=== PATIENT | male | born 1980 | race Caucasian/White ===

== ENCOUNTER 2016-08-01 14:23 | Inpatient (IN) | payer OTHER ==
[~2016-08-01] VITALS: Ht 182.9 cm; Wt 68.5 kg
[2016-08-02] MEDS ORDERED: CLONIDINE HCL 0.1 MG TABLET PO PRN (03:00)
[2016-08-02] MEDS ORDERED: diphenhydrAMINE 50 MG CAPSULE PO PRN (03:00)
[2016-08-02] MEDS ORDERED: LORAZEPAM 1 MG TABLET PO PRN ×5 (03:00→09:15)
[2016-08-02] MEDS ORDERED: MAG HYDROX/AL HYDROX/SIMETH 30 ML LIQUID UDC PO PRN (03:00)
[2016-08-02] MEDS ORDERED: MAGNESIUM HYDROXIDE 30 ML LIQUID UDC PO PRN (03:00)
[2016-08-02] MEDS ORDERED: ONDANSETRON ODT 4 MG TAB.RAPDIS SL PRN (03:00)
[2016-08-02] MEDS ORDERED: HYDROXYZINE PAMOATE 25 MG CAPSULE PO PRN ×2 (03:00→09:15)
[2016-08-02] MEDS ORDERED: ACETAMINOPHEN 325 MG TABLET PO PRN (03:00)
[2016-08-02] MEDS ORDERED: DICYCLOMINE HCL 20 MG TABLET PO PRN (03:00)
[2016-08-02] MEDS ORDERED: LORAZEPAM 2 MG/1 ML VIAL IM PRN (03:00)
[2016-08-02] MEDS ORDERED: BUPRENORPHINE HCL 2 MG TAB.SUBL SL PRN ×2 (03:00→09:15)
--- NOTE | 2016-08-02 03:30 | NUR ---
ADMISSION NOTE Pt arrived ambulatory to the [facility] third floor (accompanied by [facility] staff) on 08/02/16 at approximately 0255. Pt is a 36 y/o male being admitted for Benzodiazepine, Opiate, ETOH, Cocaine, and Marijuana dependence and use. Pt is a/o x 4 with no changes in LOC. Pt reported having an allergy to grass. Pt weighs 151 pounds and stands at 6 feet. Pt reported a PMH of major depression, anxiety, and right knee injury r/t sports. Pt reported having a family hx of diabetes(Dad). Pt reported having a family physician but stated " I rather not give you his name." Pt denied having a psych doctor. Pt reported he's been using Heroin for 15 years, and uses about 1 gram every other day. Last dose of Heroin was on Sunday ( 07/28/16) and pt reported using " 2 bags". Pt has been using [place] for 6 years and uses 4-6 pills every other day. Last dose of [place] was on Sunday (07/29/16) and pt had 2-3 pills. Pt has been using Ativan for the past 9 years. Pt stated " I get it prescribed to me through my family doctor. I usually only take 6 mg a day, but depending on how I feel that day I sometimes take more. I took some on the plane before I came here (08/02/16). I had between 5-10 2 mg pills." Pt reported using Cocaine and Marijuana since high school. Pt uses about half a gram of each substance sporadically. Last dose of Cocaine was on Sunday (07/29/16) and last dose of Marijuana was on Sunday, but pt cannot recall how much he used. Pt reported " I've been drinking for a number of years. I drink vodka. It depends on how I'm feeling. Some days I can drink a fifth of vodka or more. Other days I just have a couple of drinks." Pt reported having his last drink on Sunday (07/29/16) but cannot recall how much he had to drink on that day. Pt arrived with an empty bottle of [place] 10/325 mg for chronic right knee pain, and a half empty bottle of Ativan 2 mg for anxiety. All medications reconciled. Pt reported this is his first time in treatment and he's never been completely sober. Pt smokes about 3/4 pack of cigarettes a day. Upon assessment pt is mildly intoxicated, but coherent and partially cooperative. Pt was notably agitated and as the interview went on pt's affect began to flatten and he became more uncooperative. Pt's breathing is even and unlabored. No SOB noted or reported. Pt's skin is dry and intact. Vital signs upon preadmission: BP: 126/86 HR:73 T:98.0 R: 20 Oxygen Saturation: 100% Pain: 0/10 COW: 13 and CIWA: 10. Pt encouraged to notify staff of any changes in condition or of any concerns. Pt verbalized an understanding. Will continue to monitor.
--- NOTE | 2016-08-02 03:56 | NUR ---
PRN Vistaril Pt c/o anxiety and requested for PRN Vistaril. Medication given and tolerated well. Will reassess within 1 HR. Will continue to monitor.
[2016-08-02] MEDS ORDERED: HYDROXYZINE PAMOATE 25 MG CAPSULE ONE (03:57)
[2016-08-02 04:00] VITALS: BP 126/56
[2016-08-02 04:03] LABS: BASOPHILS # (AUTO) 0.1 K/uL (0.0-8.0); BASOPHILS % (AUTO) 0.8 % (0.0-2.0); EOSINOPHILS # (AUTO) 0.3 K/uL (0.0-0.7); EOSINOPHILS % (AUTO) 4.7 % (0.0-7.0); ETHANOL < 3 MG/DL (0-0); HEMATOCRIT 45.7 % (36.7-47.1); HEMOGLOBIN 15.8 g/dL (12.5-16.3); LYMPHOCYTES % (AUTO) 42.6 % (20.5-51.5); MEAN CORPUSCULAR HEMOGLOBIN 30.8 uug (23.8-33.4); MEAN CORPUSCULAR HGB CONC 35 g/dL (32.5-36.3); MEAN CORPUSCULAR VOLUME 89.1 fL (73.0-96.2); MONOCYTES # (AUTO) 0.5 K/uL (2.0-10.0); MONOCYTES % (AUTO) 6.7 % (0.0-11.0); NEUTROPHILS % (AUTO) 45.2 % (38.5-71.5); PLATELET COUNT (AUTO) 264 K/uL (152-348); RED BLOOD CELL COUNT(AUTO) 5.12 MIL/uL (4.06-5.63); RED CELL DISTRIBUTION WIDTH 12.5 % (12.1-16.2); WHITE BLOOD COUNT (AUTO) 6.9 K/uL (3.6-10.2)
[2016-08-02 04:04] LABS: ALANINE AMINOTRANSFERASE 384 U/L (16-63); ALBUMIN 4.1 g/dL (3.4-5.0); ALKALINE PHOSPHATASE 56 U/L (50-136); AMYLASE 33 U/L (25-115); ASPARTATE AMINOTRANSFERASE 187 U/L (15-37); BILIRUBIN,TOTAL 0.5 mg/dL (0.2-1.0); CALCIUM 8.8 mg/dL (8.5-10.1); CARBON DIOXIDE 32 mmol/L (21-32); CHLORIDE 102 mmol/L (98-107); CREATININE 1.1 mg/dL (0.6-1.3); GFR 77 mL/min (>60); GLUCOSE 93 mg/dL (74-106); LIPASE 284 U/L (73-393); POTASSIUM 4.1 mmol/L (3.5-5.1); SODIUM SERUM 141 mmol/L (136-145); UREA NITROGEN, BLOOD 11 mg/dL (7-18)
[2016-08-02 04:22] LABS: HIV-1 p24 ANTIGEN NON REACTIVE (NONREACTIVE); HIV-1/2 ANTIBODY NON REACTIVE (NONREACTIVE)
--- NOTE | 2016-08-02 04:56 | NUR ---
VISTARIL PRN REASSESSMENT Pt stated " I'm fine now, I just don't want to be bothered so I can sleep. " PRN effective. All safety measures in place. Will continue to monitor.
--- NOTE | 2016-08-02 07:30 | NUR ---
Start of shift note; Received report from night nurse. Patient is a 36 y/o male admitted on 08/02/16 for Opiate/ETOH/Benzo/cocaine dependence. Patient reported history of depression, anxiety, right knee injury. No seizure history reported.Patient is on a regular diet and on full code status. Patient is on fall and seizure precaution. Will continue to monitor patient.
--- NOTE | 2016-08-02 07:45 | NUR ---
END OF SHIFT NOTE Pt is a 36 y/o male admitted for Heroin, Ativan, ETOH, Cocaine, and Marijuana dependence and use. Pt has an allergy to grass and reported a PMH of depression, anxiety, and right knee injury. Pt is not on taper at this time. Pt received Vistaril 50 mg PO PRN during the shift. Pt slept for a total of 3 hours. Endorsed to the oncoming nurse.
[2016-08-02 08:00] VITALS: BP 112/73
[2016-08-02] MEDS: MULTIVITAMINS,THERAPEUTIC TABLET PO SCH (09:00)
[2016-08-02] MEDS ORDERED: TUBERCULIN,PURIF.PROT.DERIV. 5 TU/0.1 ML TEST ID ONE (09:00)
[2016-08-02] MEDS ORDERED: THIAMINE HCL 200 MG/2 ML VIAL IM ONE (09:15)
--- NOTE | 2016-08-02 09:31 | NUR ---
Medication refusal; Patient is currently refusing to provide UA and refusing scheduled medications at this time. Educated patient regarding the importance of compliance to treatment plan. Will continue to monitor patient.
[2016-08-02 12:00] VITALS: BP 134/83
[2016-08-02 12:59] LABS: *AMPHETAMINE, URINE NEGATIVE (NEGATIVE); *BARBITURATE, URINE NEGATIVE (NEGATIVE); *CANNABINOID, URINE POSITIVE (NEGATIVE); *COCCAINE, URINE POSITIVE (NEGATIVE); *OPIATE, URINE NEGATIVE (NEGATIVE); *PHENCYCLIDINE SCREEN,URINE NEGATIVE (NEGATIVE)
[2016-08-02 16:00] VITALS: BP 128/82
[2016-08-02] MEDS ORDERED: LORA2TAB95 PO (16:14)
[2016-08-02] MEDS: BUPRENORPHINE HCL 2 MG TAB.SUBL SL SCH ×2 (17:05→20:47)
[2016-08-02] MEDS: LORAZEPAM 1 MG TABLET PO SCH ×2 (17:05→20:43)
--- NOTE | 2016-08-02 19:10 | NUR ---
End of shift note; Patient is AOX4. Patient is a 36 y/o male admitted on 08/02/16 for Opiate/ETOH/Benzo/cocaine dependence. Patient reported history of depression, anxiety, right knee injury. No seizure history reported.Patient is on a regular diet and on full code status. Medications were effective in reducing withdrawal symptoms. Patient is on fall and seizure precaution. Met all needs.
[2016-08-02 20:00] VITALS: BP 120/78
--- NOTE | 2016-08-02 20:11 | NUR ---
START OF SHIFT NOTE Pt is a 36 y/o male admitted for Heroin, Ativan, ETOH, Cocaine, and Marijuana dependence and use. Pt has an allergy to grass and reported a PMH of depression, anxiety, and right knee injury. Per day shift nurse pt was started on a 5 day Ativan and 5 day Subutex taper and is tolerating medication well, with no s/e or a/r reported. Pt didn't receive any PRNS during the day shift. Last COW: 12 and CIWA: 10(1600). At this time pt has just returned to his room from being outside with staff and peers. Pt stated " I'm doing very well today. I hope I can get my own room soon. I don't mind having a roommate, but we have to share the t.v and we don't watch the same things." Pt concerns will be endorsed to the appropriate steamship agent. Pt denies any pain/discomfort at this time. Pt is encouraged to notify staff of any changes in condition or of any concerns. Pt verbalized an understanding. All safety measures in place. Will continue to monitor.
[2016-08-02] MEDS: METHOCARBAMOL 750 MG TABLET PO PRN (20:43)
--- NOTE | 2016-08-02 20:43 | NUR ---
ROBAXIN PRN ADMINISTRATION Pt stated " My knee is hurting. I would say it's about 5 out of 10." Robaxin 750 mg PO PRN was given. Pt was encouraged to notify staff of any changes in condition or of any concerns. Pt verbalized an understanding. All safety measures in place. Will monitor for effectiveness.
--- NOTE | 2016-08-02 21:43 | NUR ---
SANDIE PRN REASSESSMENT Pt stated " My leg feels much better." PRN effective. Will continue to monitor.
[2016-08-03] VITALS: BP 127/81
--- NOTE | 2016-08-03 04:00 | NUR ---
COW, CIWA, AND VITALS REFUSED Pt refused to be assessed and have vitals taken at this time. Pt was encouraged x 3 with risks and benefits explained, but the pt still declined. All safety measures in place. Will continue to monitor. Addendum: 08/03/16 at 0539 by ROSA RICHTER LVN Amended: Links added.
[2016-08-03 07:06] LABS: HEPATITIS B CORE AB, IgM Negative (Negative); HEPATITIS B SURFACE AG Negative (Negative)
--- NOTE | 2016-08-03 07:21 | NUR ---
END OF SHIFT NOTE Pt is a 36 y/o male admitted for Heroin, Ativan, ETOH, Cocaine, and Marijuana dependence and use. Pt has an allergy to grass and reported a PMH of depression, anxiety, and right knee injury. Per day shift nurse pt was started on a 5 day Ativan and 5 day Subutex taper and is tolerating medication well, with no s/e or a/r reported. Pt didn't receive any PRNS during the day shift. Last COW: 12 and CIWA: 10(1600). At this time pt has just returned to his room from being outside with staff and peers. Pt stated " I'm doing very well today. I hope I can get my own room soon. I don't mind having a roommate, but we have to share the t.v and we don't watch the same things." Pt concerns will be endorsed to the appropriate steam hand. Pt denies any pain/discomfort at this time. Pt is encouraged to notify staff of any changes in condition or of any concerns. Pt verbalized an understanding. All safety measures in place. Endorsed to the oncoming nurse.
--- NOTE | 2016-08-03 07:22 | NUR ---
END OF SHIFT NOTE Pt is a 36 y/o male admitted for Heroin, Ativan, ETOH, Cocaine, and Marijuana dependence and use. Pt has an allergy to grass and reported a PMH of depression, anxiety, and right knee injury. Pt continues on a 5 day Ativan and 5 day Subutex taper(day 2) and is tolerating medication well, with no s/e or a/r reported. Pt received Robaxin 750 mg PO PRN any PRNS during the shift. Last COW: 0 and CIWA:0(0000). Pt slept for a total of 7 hours. All safety measures in place. Endorsed to the oncoming nurse.
--- NOTE | 2016-08-03 07:23 | NUR ---
Start of Shift Notes: Received patient in his room. Alert and oriented x 4. Able to make his needs known. Respirations even and unlabored. No SOB noted. Skin warm and dry to touch. Abdomen soft and non-distended with (+) BS in all 4 quadrants. No complains of N/V/D or constipation noted. Denies any complains of abdominal discomfort noted. Voids independently. Ambulatory ad valentina with steady gait. patient is a 36 year old male admitted for opiate/ETOH/Ativan/marijuana and cocaine dependence who was placed on a 5-day Ativan and 5-day Subutex taper as ordered. No adverse reactions noted. Has past medical hx of depression, anxiety and right knee injury. Allergic to grass. FULL CODE. Regular diet. On fall and seizure precautions. Educated patient on his current plan of care for the day and his medication regimen. Encouraged oral fluid intake and encouraged group participation to learn new skills to prevent relapse. Will continue to monitor closely.
[2016-08-03 07:47] LABS: BASOPHILS # (AUTO) 0.1 K/uL (0.0-8.0); BASOPHILS % (AUTO) 0.6 % (0.0-2.0); EOSINOPHILS # (AUTO) 0.4 K/uL (0.0-0.7); EOSINOPHILS % (AUTO) 4.7 % (0.0-7.0); HEMATOCRIT 45.2 % (36.7-47.1); HEMOGLOBIN 15.3 g/dL (12.5-16.3); LYMPHOCYTES # (AUTO) 4.1 K/uL (20.0-40.0); LYMPHOCYTES % (AUTO) 48.2 % (20.5-51.5); MEAN CORPUSCULAR HEMOGLOBIN 30.7 uug (23.8-33.4); MEAN CORPUSCULAR HGB CONC 34 g/dL (32.5-36.3); MEAN CORPUSCULAR VOLUME 90.7 fL (73.0-96.2); MONOCYTES # (AUTO) 0.4 K/uL (2.0-10.0); MONOCYTES % (AUTO) 5.3 % (0.0-11.0); NEUTROPHILS # (AUTO) 3.5 K/uL (1.8-8.9); NEUTROPHILS % (AUTO) 41.2 % (38.5-71.5); PLATELET COUNT (AUTO) 236 K/uL (152-348); RED BLOOD CELL COUNT(AUTO) 4.98 MIL/uL (4.06-5.63); RED CELL DISTRIBUTION WIDTH 12.8 % (12.1-16.2); WHITE BLOOD COUNT (AUTO) 8.5 K/uL (3.6-10.2)
[2016-08-03 08:00] VITALS: BP 120/62
[2016-08-03 08:06] LABS: BILIRUBIN,DIRECT 0.1 mg/dL (0.0-0.2); BILIRUBIN,TOTAL 0.3 mg/dL (0.2-1.0); CALCIUM 8.5 mg/dL (8.5-10.1); CREATININE 0.9 mg/dL (0.6-1.3); MAGNESIUM 1.9 mg/dL (1.8-2.4); POTASSIUM 3.7 mmol/L (3.5-5.1); TOTAL PROTEIN, SERUM 7.8 g/dL (6.4-8.2)
[2016-08-03 08:15] LABS: THYROID STIMULATING HORMONE 5.693 mIU/mL (0.358-3.740)
[2016-08-03] MEDS ORDERED: TUBERCULIN,PURIF.PROT.DERIV. 5 TU/0.1 ML TEST ID ONE (09:00)
[2016-08-03] MEDS: MULTIVITAMINS,THERAPEUTIC TABLET PO SCH ×2 (09:00→09:03)
[2016-08-03] MEDS: BUPRENORPHINE HCL 2 MG TAB.SUBL SL SCH ×4 (09:02→21:01)
[2016-08-03] MEDS: LORAZEPAM 1 MG TABLET PO SCH ×4 (09:02→20:57)
[2016-08-03] MEDS: THIAMINE HCL 100 MG TABLET PO SCH (09:03)
[2016-08-03] MEDS: FOLIC ACID 1 MG TABLET PO SCH (09:03)
[2016-08-03 12:00] VITALS: BP 126/87
--- NOTE | 2016-08-03 12:46 | NUR ---
Clonidine 0.1mg PO given: Patient noted with complain of increased anxiety, chills, hot flashes, mild agitation noted. BP 126/87. Redirected patient with non-pharmacological intervention. Medicated patient with Clonidine 0.1mg PO as ordered. Will monitor for effectiveness.
--- NOTE | 2016-08-03 13:46 | NUR ---
Re-assessment: Per patient, PRN Clonidine was effective in reducing patient's chills, hot flashes, anxiety and agitation.
[2016-08-03] MEDS: DICYCLOMINE HCL 20 MG TABLET PO SCH ×2 (14:11→20:57)
[2016-08-03] MEDS: METHOCARBAMOL 750 MG TABLET PO PRN ×2 (14:11→23:06)
--- NOTE | 2016-08-03 14:11 | NUR ---
PRN Tylenol 650 mg PO and Robaxin 750 mg PO given: Patient noted with complain of right knee pain and muscle aches and pains 07/17. Medicated patient Tylenol 650 mg PO and Robaxin 750mg PO as ordered. Will monitor for effectiveness.
--- NOTE | 2016-08-03 15:11 | NUR ---
Re-assessment: Per patient, PRN Tylenol and Robaxin were effective in reducing pain. PL 210.
[2016-08-03 16:00] VITALS: BP 121/79
--- NOTE | 2016-08-03 18:45 | NUR ---
End of Shift Notes: Patient is a 36 year old male admitted for opiate, ETOH and Ativan dependence who was placed on a 5-day Subutex and 5-day Ativan taper. Tolerated well. Has past medical hx of depression, anxiety and right knee injury. FULL CODE. Regular diet. On fall and seizure precautions. Prior to admission, patient was using 1 gram of heroin, 750cc of ETOH, and 6 mg of Ativan. VS monitored closely q 4 hours. No significant abnormalities noted. Withdrawal symptoms were closely monitored. Patient presented with chills, sweats, bone/joint aches, pupil dilation, hot flashes and abdominal cramps. PRN Tylenol and PRN Robaxin was given at 1411 due to complain of generalized pain and muscle aches with help after 1 hour. Initial COWS 6/CIWA 4. Per patient, Ativan and Subutex has been helping him with his withdrawal symptoms. Last COWS 5/CIWA 3. Oral fluids encouraged to tolerance. Safety precautions in place. Requires encouragement to attend activities and socialize with peers. Safety precautions in place. All needs met and attended. Will continue to monitor closely.
[2016-08-03 20:00] VITALS: BP 128/79
--- NOTE | 2016-08-03 20:06 | NUR ---
START OF SHIFT NOTE Pt is a 36 y/o male admitted for Heroin, Ativan, ETOH, Cocaine, and Marijuana dependence and use. Pt has an allergy to grass and reported a PMH of depression, anxiety, and right knee injury. Per day shift nurse pt continues on a 5 day Ativan and 5 day Subutex taper and is tolerating medication well, with no s/e or a/r reported. Pt received Tylenol 650 mg PO PRN, Clonidine 0.1 mg, and Robaxin 750 mg PO PRN during the day shift. Last COW: 5 and CIWA: 3 (1600). At this time pt has just returned to his room from the recreational room. Pt stated " I'm doing good today." Pt denies any pain/discomfort at this time. Pt is encouraged to notify staff of any changes in condition or of any concerns. Pt verbalized an understanding. All safety measures in place. Will continue to monitor.
[2016-08-03] MEDS: GABAPENTIN 300 MG CAPSULE PO SCH (20:57)
[2016-08-03] MEDS: IBUPROFEN 400 MG TABLET PO PRN (21:09)
--- NOTE | 2016-08-03 21:09 | NUR ---
MOTRIN PRN ADMINISTRATION Pt stated "? My knee is starting to hurt. Like a 08/16. Can I have something?" Motrin 400 mg PO PRN was given. Pt was encouraged to notify staff of any changes in condition or of any concerns. Pt verbalized and understanding. All safety measures in place. Will monitor for effectiveness.
--- NOTE | 2016-08-03 22:09 | NUR ---
KAMILA PRN REASSESSMENT Pt stated " It's better. I can tolerate it. I have chronic knee pain, so it's always gonna hurt but its okay right now. Like a 05/19." PRN effective. All safety measures in place. Will continue to monitor.
--- NOTE | 2016-08-03 23:06 | NUR ---
ROBAXIN PRN ADMINISTRATION Pt stated " Can I have what you gave me last night? It really helped me with my knee." Robaxin 750 mg PO PRN was given. Pt was encouraged to notify staff of any changes in condition or of any concerns. Pt verbalized an understanding. All safety measures in place. Will monitor for effectiveness.
[2016-08-04] VITALS: BP 112/63
--- NOTE | 2016-08-04 00:06 | NUR ---
SANDIE PRN REASSESSMENT Pt stated " My knee feels better." PRN effective. Pt was encouraged to notify staff of any changes in condition or of any concerns. Pt verbalized an understanding. All safety measures in place. Will continue to monitor.
--- NOTE | 2016-08-04 04:00 | NUR ---
COW, CIWA, AND VITALS REFUSED Pt refused to be assessed and have vitals taken at this time. Pt was encouraged x 3 with risks and benefits explained, but the pt still declined. All safety measures in place. Will continue to monitor. Addendum: 08/04/16 at 0530 by ROSA RICHTER LVN Amended: Links added.
--- NOTE | 2016-08-04 07:35 | NUR ---
END OF SHIFT NOTE Pt is a 36 y/o male admitted for Heroin, Ativan, ETOH, Cocaine, and Marijuana dependence and use. Pt has an allergy to grass and reported a PMH of depression, anxiety, and right knee injury. Pt continues on a 5 day Ativan and 5 day Subutex taper(day 3) and is tolerating medication well, with no s/e or a/r reported. Pt received Robaxin 750 mg PO PRN and Motrin 400 mg PO PRN during the shift. Last COW: 1 and CIWA:0(0000). Pt slept for a total of 6 hours. All safety measures in place. Endorsed to the oncoming nurse.
[2016-08-04 08:00] VITALS: BP 127/54
[2016-08-04] MEDS: BUPRENORPHINE HCL 2 MG TAB.SUBL SL SCH ×3 (08:14→20:18)
[2016-08-04] MEDS: GABAPENTIN 300 MG CAPSULE PO SCH ×3 (08:15→20:18)
[2016-08-04] MEDS: MULTIVITAMINS,THERAPEUTIC TABLET PO SCH ×2 (08:15→08:19)
[2016-08-04] MEDS: THIAMINE HCL 100 MG TABLET PO SCH (08:15)
[2016-08-04] MEDS: FOLIC ACID 1 MG TABLET PO SCH (08:15)
[2016-08-04] MEDS: METHOCARBAMOL 750 MG TABLET PO PRN (08:15)
[2016-08-04] MEDS: LORAZEPAM 1 MG TABLET PO SCH ×3 (08:15→20:18)
[2016-08-04] MEDS: DICYCLOMINE HCL 20 MG TABLET PO SCH ×3 (08:15→20:18)
--- NOTE | 2016-08-04 08:15 | NUR ---
Robaxin 750 mg PO given: Patient complained of 8/10 pain to right knee. Heat packs applied with no help. Medicated patient with Robaxin 750 mg PO as ordered. Will monitor for effectiveness.
[2016-08-04 08:21] LABS: BASOPHILS % (AUTO) 0.6 % (0.0-2.0); EOSINOPHILS # (AUTO) 0.4 K/uL (0.0-0.7); EOSINOPHILS % (AUTO) 5.4 % (0.0-7.0); HEMATOCRIT 41.8 % (36.7-47.1); HEMOGLOBIN 14.2 g/dL (12.5-16.3); LYMPHOCYTES # (AUTO) 3.6 K/uL (20.0-40.0); LYMPHOCYTES % (AUTO) 52.1 % (20.5-51.5); MEAN CORPUSCULAR HEMOGLOBIN 30.9 uug (23.8-33.4); MEAN CORPUSCULAR HGB CONC 34 g/dL (32.5-36.3); MONOCYTES # (AUTO) 0.4 K/uL (2.0-10.0); MONOCYTES % (AUTO) 5.6 % (0.0-11.0); NEUTROPHILS # (AUTO) 2.5 K/uL (1.8-8.9); NEUTROPHILS % (AUTO) 36.3 % (38.5-71.5); PLATELET COUNT (AUTO) 191 K/uL (152-348); RED CELL DISTRIBUTION WIDTH 12.6 % (12.1-16.2); WHITE BLOOD COUNT (AUTO) 6.9 K/uL (3.6-10.2)
[2016-08-04 08:22] LABS: ALBUMIN 3.5 g/dL (3.4-5.0); BILIRUBIN,DIRECT 0.1 mg/dL (0.0-0.2); BILIRUBIN,TOTAL 0.3 mg/dL (0.2-1.0); CALCIUM 8.4 mg/dL (8.5-10.1); CREATININE 0.9 mg/dL (0.6-1.3); PHOSPHOROUS 4.8 mg/dL (2.5-4.9); POTASSIUM 4.1 mmol/L (3.5-5.1); TOTAL PROTEIN, SERUM 6.6 g/dL (6.4-8.2)
[2016-08-04 08:48] LABS: THYROID STIMULATING HORMONE 3.29 mIU/mL (0.358-3.740)
--- NOTE | 2016-08-04 09:15 | NUR ---
Re-assessment: Per patient, PRN Robaxin was mildly effective in relieving patient's right knee. PL 07/17.
--- NOTE | 2016-08-04 10:45 | NUR ---
MD Communication: Informed MD Carver regarding patient's constant complain of right knee pain related to his right knee injury. Per MD, he will enter in orders.
[2016-08-04 12:00] VITALS: BP 115/62
[2016-08-04 13:25] LABS: HCV AB >11.0 s/co ratio (0.0-0.9)
--- NOTE | 2016-08-04 13:27 | NUR ---
MD Communication: Informed MD Carver of patient's Hep C results.
[2016-08-04] MEDS ORDERED: METHYL SALICYLATE/MENTHOL CREAM 28 GM TUBE TOP PRN (14:15)
[2016-08-04] MEDS: BACLOFEN 10 MG TABLET PO SCH ×2 (14:28→20:18)
[2016-08-04] MEDS: KETOROLAC TROMETHAMINE 30 MG INJ IM PRN (14:28)
--- NOTE | 2016-08-04 14:28 | NUR ---
Toradol 30 mg IM given: Patient complained of 9/10 right knee. Patient seen in bed with facial grimacing, rubbing right knee, appears teary. Heat packs applied to right knee with no help. Mediated patient with Toradol 30 mg IM as ordered. Will monitor for effectveness.
--- NOTE | 2016-08-04 14:58 | NUR ---
Re-assessment: Per patient, PRN Toradol was effective in reducing right knee pain. PL 06/16.
[2016-08-04 16:00] VITALS: BP 105/57
--- NOTE | 2016-08-04 18:48 | NUR ---
End of Shift Notes: Patient is a 36 year old male admitted for opiate, ETOH and Ativan dependence who was placed on a 5-day Subutex and 5-day Ativan taper. Tolerated well. Has past medical hx of depression, anxiety and right knee injury. FULL CODE. Regular diet. On fall and seizure precautions. Prior to admission, patient was using 1 gram of heroin, 750cc of ETOH, and 6 mg of Ativan. VS monitored closely q 4 hours. No significant abnormalities noted. Withdrawal symptoms were closely monitored. Patient presented with chills, sweats, bone/joint aches, hot flashes and abdominal cramps. PRN Robaxin was given at 0815 due to complain of generalized pain and muscle aches with help after 1 hour. Initial COWS 7/CIWA 5. Per patient, Ativan and Subutex has been helping him with his withdrawal symptoms. Medicated patient with Toradol 30 mg IM at 1428 due to right knee pain with help after 30 min. Last COWS 4/CIWA 2. Oral fluids encouraged to tolerance. Safety precautions in place. Requires encouragement to attend activities and socialize with peers. All needs met and attended. Will continue to monitor closely.
--- NOTE | 2016-08-04 19:05 | NUR ---
Start of Shift Patient Received. Patient is in activities room participating in group meeting. Patient is a 36 year old male, admitted on 08/02/16 for ETOH, Opiate, and Benzo Dependence, under the care of Dr. Carver. Patient is currently receiving a both 5 day Ativan taper as well as 5 day Subutex taper. Patient verbalizes environmental allergies of Gross and Pollen, wishes to be full code, following a Regular diet, placed on fall and Seizure precautions. No history of seizures noted. Skin is intact. Past Medical History of Depression, Anxiety, Right Knee injury. Per endorsement, patient has been compliant with plan of care and medications. Patient has order to have contacts at bedside. Labs have resulted with patient positive for Hep C and MD aware. All needs attended to promptly. Will continue plan of care as ordered.
[2016-08-04 20:11] VITALS: BP 133/66
[2016-08-05 00:35] VITALS: BP 116/66
[2016-08-05 04:44] VITALS: BP 95/55
--- NOTE | 2016-08-05 07:10 | NUR ---
End of Shift Patient is in bed sleeping. Breathing even and non labored. No signs of pain or discomfort noted. Patient is a 36 year old male, admitted on 08/02/16 for ETOH, Opiate, and Benzo Dependence, under the care of Dr. Carver. Patient is currently receiving a both 5 day Ativan taper as well as 5 day Subutex taper. Patient verbalizes environmental allergies of Grass and Pollen, full code, Regular diet, fall and Seizure precautions. No history of seizures noted. Skin is intact. Past Medical History of Depression, Anxiety, Right Knee injury. No PRN medications administered. All needs attended to promptly. Will endorse continue plan of care as ordered.
--- NOTE | 2016-08-05 07:47 | NUR ---
BEGINNING OF SHIFT Patient endorsement report received from cnc machinist 2nd shift nurse, all pertinent information discussed. Patient with admitting Dx: etoh/BZO Dependence with ongoing 5 day ativan/subutex taper as ordered, patient currently on day 3 of taper. Patient slept for 6 hours, with last ciwa score of: 0 and last cow score of: 0 as per cnc machinist 2nd shift. Patient received no PRNs during cnc machinist 2nd shift. Patient continues on 1:1 for unsteady gait and safety precautions. Fall and seizure precautions observed at all times. Patient received awake, alert and oriented x4, educated regarding plan of care for the day and medication regimen with good verbal understanding. will continue to monitor closely. safety measures in place. call light with in reach.
[2016-08-05 08:00] VITALS: BP 117/64
[2016-08-05] MEDS: DICYCLOMINE HCL 20 MG TABLET PO SCH ×3 (08:23→21:46)
[2016-08-05] MEDS: FOLIC ACID 1 MG TABLET PO SCH (08:23)
[2016-08-05] MEDS: THIAMINE HCL 100 MG TABLET PO SCH (08:23)
[2016-08-05] MEDS: LORAZEPAM 1 MG TABLET PO SCH ×4 (08:24→21:46)
[2016-08-05] MEDS: GABAPENTIN 300 MG CAPSULE PO SCH ×2 (08:24→14:28)
[2016-08-05] MEDS: BACLOFEN 10 MG TABLET PO SCH ×3 (08:24→21:46)
[2016-08-05] MEDS: MULTIVITAMINS,THERAPEUTIC TABLET PO SCH ×2 (08:24→09:00)
[2016-08-05] MEDS ORDERED: BUPRENORPHINE HCL 2 MG TAB.SUBL SL SCH (09:00)
[2016-08-05 12:57] VITALS: BP 105/67
[2016-08-05] MEDS: BUPRENORPHINE HCL 2 MG TAB.SUBL SL SCH ×2 (14:28→21:47)
[2016-08-05 16:43] VITALS: BP 110/68
[2016-08-05] MEDS: IBUPROFEN 400 MG TABLET PO PRN ×2 (16:58→21:46)
--- NOTE | 2016-08-05 19:07 | NUR ---
END OF SHIFT Patient with admitting Dx: ETOH/opiate/BZO dependance and continues on 5 day Ativan and 5 day Subutex taper as ordered, well tolerated, no ASE noted, Patient currently on day 4 of Subutex taper and day 3 of Ativan taper. Patient encouraged adequate PO fluid intake as tolerated. 0900 patient presented with mild bone and joint aches, mild nausea with no vomiting, and mild anxiety with cow score of: 4 and ciwa score of: 2. 1300 assessment patient presented with: mild bone and joint aches, and mild anxiety with cow score of: 2 and ciwa score of: 1. 1700 assessment patient presented with: mild bone and joint aches, and mild anxiety and moderate head ache with cow score of: 2 and ciwa score of: 4. Detox medication effective at reducing withdrawal symptoms. Patient encouraged to attend group therapies/sessions to learn new coping skills to prevent relapse, noted attending and participating. Patient at times noted easily agitated, requires calming reassurance. patient denies SI/HI. Administered PRN: Motrin at 1759 for head ache 6/10, medication effective one hour post administration. PPD was read during shift. Negative in results, no induration noted. Safety measures in place. call light kept with in reach. Patient endorsed to shift mgr nurse, all pertinent information discussed.
--- NOTE | 2016-08-05 19:10 | NUR ---
Start of Shift Patient Received. Patient is in activities room participating in group meeting. Patient is a 36 year old male, admitted on 08/02/16 for ETOH, Opiate, and Benzo Dependence, under the care of Dr. Carver. Patient is currently receiving a both 5 day Ativan taper as well as 5 day Subutex taper. Patient verbalizes environmental allergies of Gross and Pollen, wishes to be full code, following a Regular diet, placed on fall and Seizure precautions. No history of seizures noted. Skin is intact. Past Medical History of Depression, Anxiety, Right Knee injury, and Hep C+. Per endorsement, patient has been compliant with plan of care and medications. Patient has order to have contacts at bedside. At 1600 Cows noted at 2 and CIWA noted at 4. All needs attended to promptly. Will continue plan of care as ordered.
[2016-08-05 20:15] VITALS: BP 133/94
[2016-08-05] MEDS ORDERED: GABAPENTIN 300 MG CAPSULE PO SCH (21:00)
[2016-08-05] MEDS: METHOCARBAMOL 750 MG TABLET PO PRN (21:46)
--- NOTE | 2016-08-05 21:50 | NUR ---
PRN Medication Administration Patient verbalizing increased muscle spasms and pain to the right knee due to an old injury. PRN Robaxin and Motrin administered. Will continue to monitor for effectiveness of medication.
[2016-08-05] MEDS ORDERED: GABAPENTIN 300 MG CAPSULE ONE (22:02)
--- NOTE | 2016-08-05 23:00 | NUR ---
PRN Medication Reassessment Patient noted in bed watching TV. Patient able to verbalize Muscle spasms had subsided and pain was much more tolerable to a 2/10. PRN Medication noted to be effective. Will continue to monitor.
[2016-08-06 00:20] VITALS: BP 135/85
[2016-08-06 04:56] VITALS: BP 117/69
--- NOTE | 2016-08-06 07:33 | NUR ---
START OF SHIFT NOTE: Received report from shift supervisor nurse. Patient is a 36 year old male admitted 08-02-16 for opiate/ETOH/Ativan/marijuana and cocaine dependence. Pt is on a 5-day Ativan and 5-day Subutex taper as ordered. Tolerating well. Pt is alert and oriented X4. Color good, skin warm and dry. Respirations even and unlabored. Resting in bed at this time. Safety precautions observed. Call light within reach. Will continue to monitor.
[2016-08-06] MEDS ORDERED: GABAPENTIN 300 MG CAPSULE PO SCH (09:00)
[2016-08-06] MEDS: BACLOFEN 10 MG TABLET PO SCH (09:04)
[2016-08-06] MEDS: FOLIC ACID 1 MG TABLET PO SCH (09:04)
[2016-08-06] MEDS: BUPRENORPHINE HCL 2 MG TAB.SUBL SL SCH ×3 (09:04→21:02)
[2016-08-06] MEDS: LORAZEPAM 1 MG TABLET PO SCH ×3 (09:04→21:02)
[2016-08-06] MEDS: DICYCLOMINE HCL 20 MG TABLET PO SCH ×3 (09:04→21:02)
[2016-08-06] MEDS: THIAMINE HCL 100 MG TABLET PO SCH (09:04)
[2016-08-06] MEDS: MULTIVITAMINS,THERAPEUTIC TABLET PO SCH (09:04)
[2016-08-06] MEDS: CHOLECALCIFEROL 1,000 UNIT TABLET PO SCH (09:05)
--- NOTE | 2016-08-06 09:07 | NUR ---
VSS COWS 4 CIWA 5 c/o muscle aches and anxiety
[2016-08-06 09:59] VITALS: BP 117/69
--- NOTE | 2016-08-06 13:00 | NUR ---
VSS Pt attending group
[2016-08-06 13:33] VITALS: BP 125/70
[2016-08-06] MEDS: GABAPENTIN 300 MG CAPSULE PO SCH ×2 (14:50→21:02)
[2016-08-06] MEDS: BACLOFEN 20 MG TABLET PO SCH ×2 (14:51→21:02)
[2016-08-06] MEDS ORDERED: BACLOFEN 10 MG TABLET PO SCH (15:00)
[2016-08-06] MEDS: KETOROLAC TROMETHAMINE 30 MG INJ IM PRN (15:00)
--- NOTE | 2016-08-06 15:07 | NUR ---
VSS COWS 3 CIWA 3 Toradol 30mg IM prn given for left knee pain.
--- NOTE | 2016-08-06 16:00 | NUR ---
Pt states pain has lessened after Toradol 30mg IM prn. Went from 11/16 to 08/16
[2016-08-06 17:51] VITALS: BP 125/70
--- NOTE | 2016-08-06 18:28 | NUR ---
END OF SHIFT NOTE: Report given to shift superintendent caustic cresylate nurse. Patient is a 36 year old male admitted 08-02-16 for opiate/ETOH/Ativan/marijuana and cocaine dependence. Pt is on a 5-day Ativan and 5-day Subutex taper as ordered. Tolerating well. Pt is alert and oriented X4. Color good, skin warm and dry. Respirations even and unlabored. Vital signs have remained stable throughout shift . Last COWS 3 CIWA 3 @ 1500. Pt received Toradol 30mg IM prn @ 1500. Safety precautions observed. Call light within reach. Will continue to monitor.
--- NOTE | 2016-08-06 19:10 | NUR ---
Start of Shift Patient Received. Patient is in activities room participating in group meeting. Patient is a 36 year old male, admitted on 08/02/16 for ETOH, Opiate, and Benzo Dependence, under the care of Dr. Carver. Patient is currently receiving modified a5 day Ativan taper as well as a modified 5 day Subutex taper. Patient verbalizes environmental allergies of Gross and Pollen, wishes to be full code, following a Regular diet, placed on fall and Seizure precautions. No history of seizures noted. Skin is intact. Past Medical History of Depression, Anxiety, Right Knee injury, and Hep C+. Per endorsement, patient noted to be easily irritable and emotional. PRN Toradol given for right knee pain. At 1600 Cows noted at 3 and CIWA noted at 3. All needs attended to promptly. Will continue plan of care as ordered.
[2016-08-06 19:34] LABS: ALBUMIN 4.2 g/dL (3.4-5.0); BILIRUBIN,DIRECT 0.1 mg/dL (0.0-0.2); BILIRUBIN,TOTAL 0.4 mg/dL (0.2-1.0)
[2016-08-06 21:00] VITALS: BP 116/70
[2016-08-06] MEDS: CLONIDINE HCL 0.1 MG TABLET PO SCH (21:02)
[2016-08-07 00:20] VITALS: BP 126/55
[2016-08-07 04:11] VITALS: BP 96/54
--- NOTE | 2016-08-07 07:54 | NUR ---
BEGINNING OF SHIFT Patient endorsement report received from security shift supervisor nurse, all pertinent information discussed. Patient with admitting Dx: etoh/BZO Dependence with ongoing 5 day ativan/subutex taper as ordered, patient currently on day 5 of taper. Patient slept for 4 hours, with last ciwa score of: 0 and last cow score of: 0 as per security shift supervisor. Patient received no PRNs during security shift supervisor. Fall and seizure precautions observed at all times. Patient received awake, alert and oriented x4, educated regarding plan of care for the day and medication regimen with good verbal understanding. will continue to monitor closely. safety measures in place. call light with in reach.
[2016-08-07 08:45] VITALS: BP 110/68
[2016-08-07] MEDS: DICYCLOMINE HCL 20 MG TABLET PO SCH ×3 (08:52→20:20)
[2016-08-07] MEDS: MULTIVITAMINS,THERAPEUTIC TABLET PO SCH (08:52)
[2016-08-07] MEDS: FOLIC ACID 1 MG TABLET PO SCH (08:52)
[2016-08-07] MEDS: THIAMINE HCL 100 MG TABLET PO SCH (08:52)
[2016-08-07] MEDS: BACLOFEN 20 MG TABLET PO SCH ×3 (08:52→20:20)
[2016-08-07] MEDS: GABAPENTIN 300 MG CAPSULE PO SCH ×3 (08:52→20:20)
[2016-08-07] MEDS: CLONIDINE HCL 0.1 MG TABLET PO SCH ×2 (08:53→20:21)
[2016-08-07] MEDS: LORAZEPAM 1 MG TABLET PO SCH ×2 (08:53→20:20)
[2016-08-07] MEDS: CHOLECALCIFEROL 1,000 UNIT TABLET PO SCH (08:53)
[2016-08-07] MEDS: BUPRENORPHINE HCL 2 MG TAB.SUBL SL SCH ×2 (08:54→20:21)
[2016-08-07 13:47] VITALS: BP 121/67
[2016-08-07] MEDS: NEOMY/BACITRAC/POLYMI OINT 28.35 GM TUBE TOP SCH ×2 (14:05→16:28)
[2016-08-07] MEDS: KETOROLAC TROMETHAMINE 30 MG INJ IM PRN (16:29)
--- NOTE | 2016-08-07 16:29 | NUR ---
Toradol 30 mg IM given: Patient complained of 9/10 right knee. Patient seen in bed with facial grimacing,provided with non pharmacological interventions with no relief. Administered Toradol 30 mg IM as ordered. Will monitor for effectiveness.
[2016-08-07 16:30] VITALS: BP 104/60
--- NOTE | 2016-08-07 17:29 | NUR ---
TORADOL REASSESSMENT Per patient, PRN Toradol was effective in reducing right knee pain. 06/16.
--- NOTE | 2016-08-07 18:56 | NUR ---
END OF SHIFT Patient with admitting Dx: ETOH/opiate/BZO dependance and continues on 5 day Ativan and 5 day Subutex taper as ordered, well tolerated, no ASE noted, Patient encouraged adequate PO fluid intake as tolerated. 0900 patient presented with C/o chills, mild bone and joint aches, moist eyes, stomach cramps, mild anxiety and mild agitation with cow score of: 5 and ciwas score of: 2. 1300 assessment patient presented with:c/o chills, mild bone and joint aches, moist eyes, and mild anxiety/agitation with cow score of: 4 and ciwa score of: 2. 1700 assessment patient presented with:c/o chills, mild bone and joint aches, moist eyes, and mild anxiety/agitation with cow score of: 4 and ciwa score of: 2. Detox medication effective at reducing withdrawal symptoms. Patient encouraged to attend group therapies/sessions to learn new coping skills to prevent relapse, noted attending and participating. patient denies SI/HI. Administered PRN: Toradol injection 30mg as ordered for c/o right knee pain 12/17 during shift. Safety measures in place. call light kept with in reach. Patient endorsed to well driller nurse, all pertinent information discussed.
[2016-08-07 20:00] VITALS: BP 140/98
--- NOTE | 2016-08-07 20:00 | NUR ---
START OF SHIFT NOTE Pt is a 36 y/o male admitted for Heroin, Ativan, ETOH, Cocaine, and Marijuana dependence and use. Pt has an allergy to grass and reported a PMH of depression, anxiety, and right knee injury. Per day shift nurse pt continues on a 5 day Ativan and 5 day Subutex taper and is tolerating medication well, with no s/e or a/r reported. Pt received Toradol IM PRN during the day shift for c/o right knee pain. Last COW: 4 and CIWA: 2 (1600). At this time pt is in his room watching a basketball game. Pt stated " I'm doing fine today." Pt denies any pain/discomfort at this time. Pt is encouraged to notify staff of any changes in condition or of any concerns. Pt verbalized an understanding. All safety measures in place. Will continue to monitor.
[2016-08-08] VITALS: BP 134/74
--- NOTE | 2016-08-08 00:27 | NUR ---
BENADRYL PRN ADMINISTRATION Pt stated " I can't sleep. Can I have something to help me sleep?" Benadryl 50 mg PO PRN was administered per charge nurse Genesis. Pt was encouraged to notify staff of any changes in condition or of any further concerns. Pt verbalized an understanding. All safety measures in place. Will monitor for effectiveness.
--- NOTE | 2016-08-08 01:27 | NUR ---
BENADRYL PRN REASSESSMENT Pt is asleep in bed with no signs of discomfort/distress noted. Pt's breathing is even and unlabored. Respirations are 16 breaths per minute. PRN effective. All safety measures in place. Will continue to monitor.
--- NOTE | 2016-08-08 04:00 | NUR ---
DAYDAY VLADIMIR, VITALS REFUSED Pt refused to be assessed and have vitals taken at this time. Pt was encouraged x 3 with risks and benefits explained, but the pt still refused. All safety measures in place. Will continue to monitor. Addendum: 08/08/16 at 0651 by ROSA RICHTER LVN Amended: Links added.
--- NOTE | 2016-08-08 07:01 | NUR ---
END OF SHIFT NOTE Pt is a 36 y/o male admitted for Heroin, Ativan, ETOH, Cocaine, and Marijuana dependence and use. Pt has an allergy to grass and reported a PMH of depression, anxiety, and right knee injury. Pt continues on a 5 day Ativan and 5 day Subutex taper and is tolerating medication well, with no s/e or a/r reported. Pt received Benadryl 50 mg PO PRN during the shift. Pt slept for a total of 5 hours. Last COW: 1 and CIWA: 0(0000). All safety measures in place. Endorsed to the oncoming nurse.
--- NOTE | 2016-08-08 07:32 | NUR ---
BEGINNING OF SHIFT Patient endorsement report received from night shift supervisor nurse, all pertinent information discussed. Patient with admitting Dx: etoh/BZO Dependence with ongoing 5 day Ativan/Subutex taper as ordered, Patient slept for 5 hours, with last ciwa score of: 0 and last cow score of: 1 as per night shift supervisor. Patient received PRN: Benadryl as per night shift supervisor medication was effective. Fall and seizure precautions observed at all times. Patient received awake, alert and oriented x4, educated regarding plan of care for the day and medication regimen with good verbal understanding. will continue to monitor closely. safety measures in place. call light with in reach.
[2016-08-08] MEDS: CLONIDINE HCL 0.1 MG TABLET PO SCH ×2 (08:23→21:00)
[2016-08-08] MEDS: MULTIVITAMINS,THERAPEUTIC TABLET PO SCH (08:23)
[2016-08-08] MEDS: NEOMY/BACITRAC/POLYMI OINT 28.35 GM TUBE TOP SCH ×3 (08:23→16:00)
[2016-08-08] MEDS: THIAMINE HCL 100 MG TABLET PO SCH (08:23)
[2016-08-08] MEDS: DICYCLOMINE HCL 20 MG TABLET PO SCH ×3 (08:23→21:11)
[2016-08-08] MEDS: CHOLECALCIFEROL 1,000 UNIT TABLET PO SCH (08:23)
[2016-08-08] MEDS: BACLOFEN 20 MG TABLET PO SCH (08:23)
[2016-08-08] MEDS: GABAPENTIN 300 MG CAPSULE PO SCH ×3 (08:23→21:11)
[2016-08-08] MEDS: FOLIC ACID 1 MG TABLET PO SCH (08:23)
[2016-08-08 08:30] VITALS: BP 135/60
[2016-08-08] MEDS ORDERED: CHOLECALCIFEROL 1,000 UNIT TABLET PO SCH (09:00)
[2016-08-08] MEDS ORDERED: BUPRENORPHINE HCL 2 MG TAB.SUBL SL SCH (09:00)
[2016-08-08] MEDS: IBUPROFEN 600 MG TABLET PO PRN ×2 (13:08→21:12)
--- NOTE | 2016-08-08 13:08 | NUR ---
PRN MOTRIN Patient c/o right knee pain 6/10, administered Motrin as ordered, will monitor effectiveness.
[2016-08-08 13:17] VITALS: BP 110/60
[2016-08-08] MEDS ORDERED: BACLOFEN 20 MG TABLET PO PRN (14:00)
--- NOTE | 2016-08-08 14:08 | NUR ---
MOTRIN REASSESSMENT patient reports medication with relief, current pain level is 2/10, tolerable as per patient.
[2016-08-08] MEDS ORDERED: DICY20TA28 PO (16:57)
[2016-08-08] MEDS ORDERED: Gabapentin PO (16:57)
[2016-08-08] MEDS ORDERED: HYDR-3895 PO (16:57)
[2016-08-08] MEDS ORDERED: DIPH50CA37 PO (16:57)
[2016-08-08] MEDS ORDERED: CLON0.1T14 PO (16:57)
[2016-08-08] MEDS ORDERED: Baclofen PO (16:57)
[2016-08-08] MEDS ORDERED: CHOL10002 PO (16:57)
[2016-08-08] MEDS ORDERED: Ibuprofen PO (16:57)
[2016-08-08 17:03] LABS: *AMPHETAMINE, URINE NEGATIVE (NEGATIVE); *BARBITURATE, URINE NEGATIVE (NEGATIVE); *CANNABINOID, URINE NEGATIVE (NEGATIVE); *COCCAINE, URINE NEGATIVE (NEGATIVE); *OPIATE, URINE NEGATIVE (NEGATIVE); *PHENCYCLIDINE SCREEN,URINE NEGATIVE (NEGATIVE)
[2016-08-08 17:38] VITALS: BP 114/63
--- NOTE | 2016-08-08 19:02 | NUR ---
END OF SHIFT Patient with admitting Dx: ETOH/opiate/BZO dependance and continues on 5 day Ativan and 5 day Subutex taper as ordered, well tolerated, no ASE noted, Patient received last dose of detox taper this morning, well tolerated, no ASE noted. Patient encouraged adequate PO fluid intake as tolerated. 0900 patient presented with mild anxiety, mild bone and oint aches, c/o chills and moist eyes with cow score of:4 and ciwa score of: 2. 1300 assessment patient presented with: mild bone and joint aches, moist eyes and mild anxiety with cow score of: 3 and ciwa score of: 2. 1700 assessment patient presented with: mild anxiety and mild agitation with cow score of: 2 and ciwa score of: 1. Detox medication effective at reducing withdrawal symptoms. Patient encouraged to attend group therapies/sessions to learn new coping skills to prevent relapse, noted attending and participating. patient denies SI/HI. Administered PRN: Motrin as ordered, medication effective one hour post administration. Patient is scheduled to be discharged tomorrow, noted self motivated towards sobriety. Safety measures in place. call light kept with in reach. Patient endorsed to shift coordinator nurse, all pertinent information discussed.
--- NOTE | 2016-08-08 19:45 | NUR ---
START OF SHIFT NOTE Pt is a 36 y/o male admitted for Heroin, Ativan, ETOH, Cocaine, and Marijuana dependence and use. Pt has an allergy to grass and reported a PMH of depression, anxiety, and right knee injury. Per day shift nurse pt completed 5 day Ativan and 5 day Subutex taper and is scheduled for discharge tomorrow. Pt received received Motrin 600 mg PO PRN during the day shift. Last COW: 2 and CIWA: 1 (1600). At this time pt is laying in bed watching television. Pt stated " I'm having some anxiety. I know I don't have anymore Ativan, but if I could just have something with my meds to help me out." Pt denies any pain/discomfort at this time. Pt is encouraged to notify staff of any changes in condition or of any concerns. Pt verbalized an understanding. All safety measures in place. Will continue to monitor.
[2016-08-08 20:00] VITALS: BP 105/43
[2016-08-08 21:00] VITALS: BP 107/43
[2016-08-08] MEDS: METHOCARBAMOL 750 MG TABLET PO PRN (21:12)
--- NOTE | 2016-08-08 21:12 | NUR ---
VISTARIL, ROBAXIN, AND MOTRIN PRN ADMINISTRATION Pt stated " I'm just feeling anxious. I've been taking Ativan 6 mg every day for a long time. I need something to help me relax, and my knee is hurting. I feel achy all over." Robaxin 750 mg PO PRN, Motrin 600 mg PO PRN, and Vistaril 25 mg PO PRN was given. Pt was encouraged to notify staff of any changes in condition or of any concerns. Pt verbalized an understanding. All safety measures in place. Will monitor for effectiveness.
--- NOTE | 2016-08-08 22:12 | NUR ---
VISTARIL, ROBAXIN, AND MOTRIN PRN REASSESSMENT Pt stated " My knee feels better, and I'm more at ease." PRNS effective. All safety measures in place. Will continue to monitor.
--- NOTE | 2016-08-09 | NUR ---
DAYDAY, CIWA, AND VITALS REFUSED Pt refused to be assessed and have vitals taken at this time. Pt was encouraged x 3 with risks and benefits explained, but pt still declined. All safety measures in place. Will continue to monitor. Addendum: 08/09/16 at 0553 by ROSA RICHTER LVN Amended: Links added.
--- NOTE | 2016-08-09 04:00 | NUR ---
DAYDAY, CIWA, AND VITALS REFUSED Pt refused to be assessed and have vitals taken at this time. Pt was encouraged x 3 with risks and benefits explained, but pt still declined. All safety measures in place. Will continue to monitor. Addendum: 08/09/16 at 0554 by ROSA RICHTER LVN Amended: Links added.
--- NOTE | 2016-08-09 06:57 | NUR ---
END OF SHIFT NOTE Pt is a 36 y/o male admitted for Heroin, Ativan, ETOH, Cocaine, and Marijuana dependence and use. Pt has an allergy to grass and reported a PMH of depression, anxiety, and right knee injury. Pt completed taper and is scheduled for discharge today. UA results filed appropriately in the pt's chart. Pt received Vistaril 25 mg PO PRN, Robaxin 750 mg PO PRN, and Motrin 600 mg PO PRN during the shift. Pt slept for a total of 7 hours. Last COW: 1 and CIWA: 2(0000). All safety measures in place. Endorsed to the oncoming nurse.
--- NOTE | 2016-08-09 08:05 | NUR ---
START OF SHIFT: RECEIVED PT A/O X4. HE PRESENTS WITH IRRITABLE MOOD AND CONGRUENT AFFECT. HE C/O ALL THE THING HE IS UNHAPPY ABOUT DURING HIS STAY. ENCOURAGED HIM TO FILE A GRIEVANCE. PT IS UNHAPPY HE WILL NOT BE GETTING HIS ATIVAN THAT HE BROUGHT IN UPON DISCHARGE. HE DENIES S/S OF W/D COWS 0 CIWA0. DISCHARGE PLANNING IN PROGRESS FOR THIS AM. WILL CONTINUE TO MONITOR AND CONTINUE DC PLANNING.
[2016-08-09] MEDS: CLONIDINE HCL 0.1 MG TABLET PO SCH (09:00)
[2016-08-09] MEDS: FOLIC ACID 1 MG TABLET PO SCH (09:40)
[2016-08-09] MEDS: MULTIVITAMINS,THERAPEUTIC TABLET PO SCH (09:40)
[2016-08-09] MEDS: THIAMINE HCL 100 MG TABLET PO SCH (09:40)
[2016-08-09] MEDS: CHOLECALCIFEROL 1,000 UNIT TABLET PO SCH (09:40)
[2016-08-09] MEDS: GABAPENTIN 300 MG CAPSULE PO SCH (09:40)
[2016-08-09] MEDS: NEOMY/BACITRAC/POLYMI OINT 28.35 GM TUBE TOP SCH (09:40)
[2016-08-09] MEDS: DICYCLOMINE HCL 20 MG TABLET PO SCH (09:40)
--- NOTE | 2016-08-09 10:35 | NUR ---
DISCHARGE: PT IS A/O X 4. HE DENIES S/I AND H/I. HE STATES HE IS READY TO MOVE FORWARD WITH HIS RECOVERY. BELONGINGS RETURNED. EDUCATED PT ON DISCHARGE INSTRUCTIONS AND MEDS. PT EXPRESSED VERBAL UNDERSTANDING OF EDUCATION. SYSTEM DEVELOPER ASSOCIATE MANAGER ESCORTED PT TO [facility] WHERE HE WAS TRANSPORTED BY [facility] TO [facility] AT 1030.
[2016-08-09 18:06] LABS: *HCV QUANT 6584710 IU/mL (.)
[2016-08-15 10:08] LABS: *BENZODIAZEPINES Negative (Cutoff=300); *CANNABINOID (THC) Positive (.); *COCAINE Positive (.)
== END 2016-08-09 09:45 | disposition other institution (70) | DRG 895 ==
LOC: SRC 08-02 02:10
PROVIDERS: ADMIT Internal Medicine; ATTEND Internal Medicine
PROC: HZ2ZZZZ Detoxification Services for Substance Abuse Treatment (ICD-10-PCS; principal; 2016-08-02)
PROC: HZ41ZZZ Group Counseling for Substance Abuse Treatment, Behavioral (ICD-10-PCS; 2016-08-03)
PROC: HZ31ZZZ Individual Counseling for Substance Abuse Treatment, Behavioral (ICD-10-PCS; 2016-08-04)
DX: F10.230 Alcohol dependence with withdrawal, uncomplicated (principal); F33.1 Major depressive disorder, recurrent, moderate; F13.230 Sedative, hypnotic or anxiolytic dependence with withdrawal, uncomplicated; Y90.9 Presence of alcohol in blood, level not specified; F41.9 Anxiety disorder, unspecified; Z83.3 Family history of diabetes mellitus; F17.210 Nicotine dependence, cigarettes, uncomplicated; E55.9 Vitamin D deficiency, unspecified; B19.20 Unspecified viral hepatitis C without hepatic coma; E07.81 Sick-euthyroid syndrome; F14.10 Cocaine abuse, uncomplicated; G89.29 Other chronic pain; M25.561 Pain in right knee; F11.23 Opioid dependence with withdrawal; F12.90 Cannabis use, unspecified, uncomplicated
CPT/HCPCS: 36415; 70030-TC; 80307; 80346; 80349; 80353; 82306; 83690; 83735; 84100; 84443; 85025; 85610; 86580; 86592; 86705; 86803; 87340; 87521; 87806; G6040-TC; J1885; Q0163